=== PATIENT | male | born 1965 | race Caucasian/White ===

== ENCOUNTER 2019-10-14 11:06 | Inpatient (IN) ==
--- NOTE | 2019-09-28 16:49 | PAT Medication Instructions ---
Medication Instructions Date of Service September 28, 2019 Home Medications aspirin [Aspirin Low Dose] 81 mg PO QAM citalopram [Celexa] 20 mg PO QAM lisinopril 40 mg PO QAM metformin 500 mg PO BID omeprazole 40 mg PO QAM pregabalin [Lyrica] 75 mg PO BID rosuvastatin [Crestor] 10 mg PO QPM DO NOT take the morning of surgery metformin 500 mg PO BID lisinopril 40 mg PO QAM Take morning of surgery With a small sip of water, OTHERWISE NOTHING TO EAT OR DRINK AFTER MIDNIGHT: pregabalin [Lyrica] 75 mg PO BID omeprazole 40 mg PO QAM citalopram [Celexa] 20 mg PO QAM aspirin [Aspirin Low Dose] 81 mg PO QAM Take evening before surgery pregabalin [Lyrica] 75 mg PO BID rosuvastatin [Crestor] 10 mg PO QPM metformin 500 mg PO BID Other Notes If you have any questions please call us at [phone] or [phone] or [phone] or [phone]
--- NOTE | 2019-09-29 11:56 | Anesthesiology Consultation ---
Date of Service September 29, 2019 Assessment & Plan (1) Encounter for pre-operative examination: Chart Review Chart Review: Pending: Refer to Additional Notes / Consult section (pending cardio clearance ) and Patient seen in Pre Admission Testing - Check BSG AM DOS Most recent cardio note from 02/06/19 reviewed- it was recommended patient get stress test in event that spine or knee surgery needed. Pt will be set up for cardio clearance. Consults Requested cardiac Teaching & Discussion Pre-Anesthesia Teaching/Discussion Notes: Instructed NPO after midnight before surgery,except medications with 15 cc of water. Medication instructions provided according to the PAT guidelines. History Surgery Operation Date: 10/14/19 10:25 Proposed Procedures p L3-L5 Decompression and Fusion, Spinal Cord Monitoring - Brandon Schroeder DO Height/Weight Height: 5 ft 11 in Weight: 127.2 kg Allergies Allergy/AdvReac Type Severity Reaction Status Date / Time ketorolac [From Toradol] Allergy Unknown Rash Verified 09/21/19 11:53 Medications Home Medications Medication Instructions Recorded Confirmed Last Taken aspirin [Aspirin Low Dose] 81 mg PO QAM 09/21/19 09/21/19 Unknown citalopram [Celexa] 20 mg PO QAM 09/21/19 09/21/19 Unknown lisinopril 40 mg PO QAM 09/21/19 09/21/19 Unknown metformin 500 mg PO BID 09/21/19 09/21/19 Unknown omeprazole 40 mg PO QAM 09/21/19 09/21/19 Unknown pregabalin [Lyrica] 75 mg PO BID 09/21/19 09/21/19 Unknown rosuvastatin [Crestor] 10 mg PO QPM 09/21/19 09/21/19 Unknown Past Medical History Medical History CAD (coronary artery disease) AUGUSTINE to Cx in 2013 Diabetes mellitus Borderline GERD (gastroesophageal reflux disease) Well controlled and stable- with meds History of kidney stones no current issues Hx of myocardial infarction 2013 - s/p one stent Hyperlipidemia Hypertension Numbness and tingling of left leg LEFT LEG Sleep apnea CPAP q HS Exercise / Class Metabolic Activity II 4-5 Yardwork/Stairs/Walk up hill (one filght stairs - no chest pain or SOB ) Past Family History Family History Mother Family history of diabetes mellitus Past Surgical History Surgical History Hx of cardiac cath 2013 [place] X1 STENT Hx of cystoscopy Hx of foot surgery BOTH HEELS Hx of hand surgery RIGHT Hx of knee surgery LEFT Hx of lithotripsy Past Anesthesia History No Hx of Anesthesia Complications and No Family Hx of Anesthesia Complications History of PONV No Hx of PONV and No Hx of Motion Sickness Social History Smoking Status: Current every day smoker tobacco type: cigars Smoking cigarettes per day: 3-4 cigars Do You Dip or Chew Tobacco: No Hx Alcohol Use: No Hx Substance Use: No Review of Systems Patient denies chest pain, shortness of breath, dyspnea on exertion, reflux, cough, wheezing, palpitations. No hx of seizures, stroke. No hx of blood clots or blood transfusions No recent steroid use Physical Exam Vital Signs VITALS BP 146/82 P 81 TEMP 98.0 SP02 95% RESP 16 Constitutional + obese; no acute distress ENMT Mouth: no TMJ clicking Thyromental Distance: > or= 3.5 Finger Breadths (3.5) Mallampati Class: III Missing molars Neck + limited neck extension (mild to moderate ) Respiratory normal respiratory effort; no respiratory distress Auscultation: no wheezes Course breath sounds throughout Cardiovascular Rate/Rhythm: regular rate and regular rhythm Heart Sounds: no murmur Vessels: no carotid bruit Extremities: no edema Musculoskeletal Spine: + pain with cervical ROM Neurologic moves all extremities Psychiatric Orientation: alert Testing Laboratory Results 09/29/19 11:58 09/29/19 11:58 PT 10.6 Seconds (9.0-12.0) 09/29/19 11:58 INR 1.0 (0.9-1.1) 09/29/19 11:58 APTT 29.4 Seconds (21.0-31.0) 09/29/19 11:58 Hemoglobin A1c 5.5 % (4.5-5.6) 09/29/19 11:58 Urine Color Yellow 09/29/19 Unknown Urine Appearance Clear (Clear) 09/29/19 Unknown Urine pH 6.0 (4.5-7.5) 09/29/19 Unknown Ur Specific [place] 1.018 (1.000-1.030) 09/29/19 Unknown Urine Protein Negative (Negative) 09/29/19 Unknown Urine Glucose (UA) Negative (Negative) 09/29/19 Unknown Urine Ketones Negative (Negative) 09/29/19 Unknown Urine Nitrite Negative (Negative) 09/29/19 Unknown Ur Leukocyte Esterase Negative (Negative) 09/29/19 Unknown Blood Type O Positive 09/29/19 11:58 Antibody Screen NEGATIVE 09/29/19 11:58 Electrocardiogram Date: 02/06/19 SR at 90 bpm. Q waves in lead III. Chest X-Ray Date: 09/29/19 Findings: + NAD Nonspecific interstitial thickening is likely chronic. There is mild bibasilar scarring/atelectasis. Echocardiogram Date: 02/13/19 EF: 50-55% LV Function: normal (borderline normal) Other Findings: + LVH (mild/concentric ) Valvular Disease: + no significant valvular disease Cardiac Catheterization Date: 12/27/13 LMwidely patent. LAD30 to 50% stenosis. Proximal circumflex totally occluded. RCA30%. LV cavity with mild lateral hypokinesis. EF 60%. Drug- eluting stent deployed to proximal circumflex occlusionand residual was documented at 0%.
--- NOTE | 2019-09-29 12:39 | XRay Report ---
TWO VIEW CHEST CLINICAL HISTORY: Preoperative examination. FINDINGS: PA and lateral chest radiographs are obtained. No prior studies are available for compariso n at the time of dictation. The cardiomediastinal silhouette is unremarkable. Nonspecific interstitia l thickening is likely chronic. There is mild bibasilar scarring/atelectasis. No airspace consolidati on or pleural effusion is identified. There is no pneumothorax. The bony thorax appears intact. IMPRESSION: No active disease in the chest. ACT 112: Negative or not required by law. Electronically signed by: Piter Larios M.D. 09/29/2019 12:38 PM
[2019-09-29 13:29] LABS: Basophils # (auto) 0.03 K/uL (0-0.2); Basophils % (auto) 0.3 %; Eosinophils % (auto) 4.1 %; Hematocrit (blood only) 43.5 % (42-52); Hemoglobin 14.8 g/dL (14.0-18.0); Immature Granulocytes # (auto) 0.08 K/uL (0.00-0.02); Immature Granulocytes % (auto) 0.8 %; Lymphocytes % (auto) 23.6 %; Mean Corpuscular Hemoglobin 36.4 pg (25-34); Mean Corpuscular Volume 106.9 fL (80-100); Mean Platelet Volume 9.9 fL (7.4-10.4); Monocytes % (auto) 7.2 %; Neutrophils # (auto) 6.23 K/uL (1.4-6.5); Platelet Count 230 K/uL (130-400); RDW Coefficient of Variation 13.3 % (11.5-14.5); RDW Standard Deviation 52.3 fL (36.4-46.3); Red Blood Count 4.07 M/uL (4.7-6.1); White Blood Count 9.74 K/uL (4.8-10.8)
[2019-09-29 13:31] LABS: Appearance Urine Clear (Clear); Bilirubin Urine Negative (Negative); Blood Urine Negative (Negative); Color Urine Yellow; Glucose Urine UA Negative (Negative); Ketones Urine Negative (Negative); Leukocyte Esterase Urine Negative (Negative); Nitrite Urine Negative (Negative); Protein Urine Negative (Negative); Specific Gravity Urine 1.018 (1.000-1.030); Urobilinogen Urine Negative (Negative)
[2019-09-29 13:46] LABS: Partial Thromboplastin Ratio 1.1; Partial Thromboplastin Time 29.4 Seconds (21.0-31.0); Prothrombin Time 10.6 Seconds (9.0-12.0)
[2019-09-29 13:47] LABS: Estimated Average Glucose 111 mg/dl; Hemoglobin A1C 5.5 % (4.5-5.6)
[2019-09-29 14:04] LABS: BUN Creatinine Ratio 18.8 (10-20); Calcium 8.8 mg/dl (8.5-10.1); Creatinine Clr Calc Pharmacy 160.3 ml/min; Est GFR (African American) 123.1; Est GFR (Non-African American) 106.2; Potassium 3.5 mmol/L (3.5-5.1)
[~2019-10-14 11:06] MED LIST: ACETAMINOPHEN 500 MG TAB PO SCH; CEFAZOLIN 3000MG 72.5 ML IV SCH; CeleBREX 200 MG CAP PO SCH; GABAPENTIN 600 MG DOSE PO SCH; LR 15ML/HR IV SCH; SODIUM CHLORIDE 0.9% 250 ML IV PRN
--- NOTE | 2019-10-14 11:32 | History & Physical Bridge Note ---
Date of Service October 14, 2019 History & Physical Bridge Note I have examined the patient, reviewed the History & Physical and in the interval since the performance of the History & Physical I have noted the following changes of clinical significance: no changes noted
--- NOTE | 2019-10-14 11:33 | History & Physical Report ---
Date of Service October 14, 2019 Assessment & Plan (1) Neurogenic claudication due to lumbar spinal stenosis: L4-L5 L5-S1 decompression fusion Present on Admission?: Yes History of Present Illness Chief Complaint: Back and bilateral leg pain Primary Care Provider: Arturo Tello This is a 54-year-old male with back and bilateral leg pain after failing course of nonoperative care and noting significant decline in function is here for decompression fusion. Allergies Allergy/AdvReac Type Severity Reaction Status Date / Time ketorolac [From Toradol] Allergy Unknown Rash Verified 09/21/19 11:53 Home Medications Home Medications Medication Instructions Recorded Confirmed Type aspirin [Aspirin Low Dose] 81 mg PO QAM 09/21/19 09/21/19 History citalopram [Celexa] 20 mg PO QAM 09/21/19 09/21/19 History lisinopril 40 mg PO QAM 09/21/19 09/21/19 History metformin 500 mg PO BID 09/21/19 09/21/19 History omeprazole 40 mg PO QAM 09/21/19 09/21/19 History pregabalin [Lyrica] 75 mg PO BID 09/21/19 09/21/19 History rosuvastatin [Crestor] 10 mg PO QPM 09/21/19 09/21/19 History Past Med/Surg History Medical History CAD (coronary artery disease) AUGUSTINE to Cx in 2013 Diabetes mellitus Borderline GERD (gastroesophageal reflux disease) Well controlled and stable- with meds History of kidney stones no current issues Hx of myocardial infarction 2014 - s/p one stent Hyperlipidemia Hypertension Numbness and tingling of left leg LEFT LEG Sleep apnea CPAP q HS Surgical History Hx of cardiac cath 2013 [place] X1 STENT Hx of cystoscopy Hx of foot surgery BOTH HEELS Hx of hand surgery RIGHT Hx of knee surgery LEFT Hx of lithotripsy Family History Mother Family history of diabetes mellitus Social History Preferred Language: Ivorian Communication Ability: Effective Beliefs That Will Affect Care: None Current Living Situation: Other Feels Safe at Home: Yes Safety Concerns: Feels Safe At This Time Smoking Status: Current every day smoker Tobacco Type: cigars ; Cigarettes Per Day: 3-4 cigars ; Do You Dip or Chew Tobacco: No ; Second Hand Exposure: Yes ; Hx Alcohol Use: No Hx Substance Use: No Physical Exam Physical Exam: Patient is alert and oriented neurologically intact.
[2019-10-14] MEDS ORDERED: BACITRACIN INJ 50,000 UNIT VIAL ONE (12:04)
[2019-10-14] MEDS ORDERED: BUPIVACAINE/EPINEPHRINE 0.5% MPF 1:200,000 10 ML VIAL ONE (12:04)
[2019-10-14] MEDS ORDERED: MIDAZOLAM HCL 1 MG/ML 2ML VIAL ONE (12:07)
[2019-10-14] MEDS ORDERED: fentaNYL citrate 100 MCG/2 ML VIAL ONE (12:07)
[2019-10-14] MEDS ORDERED: LIDOCAINE 2% JELLY 5 ML TUBE ONE (12:10)
[2019-10-14] MEDS ORDERED: ePHEDrine sulfate 50 MG/ML AMP IV PRN (12:21)
[2019-10-14] MEDS ORDERED: ATROPINE SULFATE 0.1 MG/ML 10ML SYR IV PRN (12:21)
[2019-10-14] MEDS ORDERED: ONDANSETRON INJ 2 MG/ML 2 ML VIAL IV PRN ×2 (12:21→17:23)
[2019-10-14] MEDS ORDERED: HYDROmorphone INJ 2 MG/ML SYR/VIAL ONE (12:56)
[2019-10-14] MEDS ORDERED: FLOSEAL HEMOSTATIC MATRIX 10ML TOP ONE (13:28)
[2019-10-14] MEDS ORDERED: PHENYLEPHRINE 100MCG/ML 5ML SYR ONE (14:26)
[2019-10-14] MEDS ORDERED: NEOSTIGMINE METHYLSULFATE 5 MG/5 ML SYR ONE (14:26)
[2019-10-14] MEDS ORDERED: GLYCOPYRROLATE 0.2 MG/ML VIAL ONE (14:26)
[2019-10-14] MEDS ORDERED: PROPOFOL IV EMULSION 10 MG/ML 20 ML VIAL IV ONE (14:26)
[2019-10-14] MEDS ORDERED: ONDANSETRON INJ 2 MG/ML 2 ML VIAL ONE (14:26)
[2019-10-14] MEDS ORDERED: ROCURONIUM BROMIDE 10 MG/ML 5 ML VIAL ONE (14:26)
[2019-10-14] MEDS ORDERED: ALBUMIN HUMAN 5% 12.5 GM/250 ML VIAL IV ONE (14:36)
--- NOTE | 2019-10-14 14:58 | Operative Report ---
Post Operative Report Pre & Post Diagnosis Operation Date: 10/14/19 13:05 Pre-Op Diagnosis: Neurogenic Claudication Due to Lumbar Spinal Stenosis Spondylolisthesis L5-S1 Hernia nucleus pulposus L5-S1 Post-Op Diagnosis: Same I identified the patient and participated in the time-out.: Yes Procedure Operation Date: 10/14/19 13:05 Actual Procedures Medial facetectomies and foraminotomies L3-4, L4-5 and L5-S1. #2 posterior spinal fusion L4-5 L5-S1. #3 placement posterior instrumentation L4-5 L5-S1. #4 interbody fusion L5-S1. #5 placement of Spira titanium cage 13 x 26 mm at L5-S1. #6 placement locally harvested morselized autograft in the posterior gutters. #7 placement infuse collagen sponge, master graft in the posterior gutters and ostial amp interbody space. Surgeon Brandon Schroeder, Logging Tractor Operator Swamp Destiny Laughlin Estimated Blood Loss 500 Findings See Below The patient is 5 foot 11 inches tall weighing over 125 kg with a BMI in excess of 38. This combined with an EBL of greater than 500 cc created significant technical difficulty. He did require our deepest retractors and longus instruments in order to perform his procedure. This added at least 40% increase to the operative time. Specimens None Indications This is a 54-year-old male that presents with marked clinical status with bilat eral leg weakness with any standing and walking. Subsequently elected to go the above-mentioned procedure. Description of Procedure Patient was met with identified informed consent obtained. Patient was then taken to the operative suite underwent an patient placed in a prone position on the Marvin table on top of the Aaron frame. All bony prominences well-padded eyes inspected to ensure no external pressure placed upon them. This point the lumbar spine was prepped and draped in normal sterile fashion. Sharp dissection with the assistance of Bovie cautery was performed down to and exposing the lamina and transverse processes of L4-L5 and sacral ala bilaterally. Obvious bilateral pars defect was noticed at L5-S1. A complete laminectomy of L5 L4 and partial laminectomy of L3 was performed including bilateral medial facetectomies and foraminotomies addressing severe stenosis. L also identified large herniated nucleus pulposus L5-S1 the left. Pedicle screws were then placed in L4-L5 and S1 levels bilaterally with assistance of fluoroscopy and proper sized toi placed. By way of a transforaminal approach and left complete discectomy of L5-S1 was performed endplates curetted to subcortical bleeding bone and a 13 x 26 mm titanium cage filled with osteo-bone graft tapped in position. The rods were then locked into final position bilaterally. The transverse processes of L for L5 and sacral ala burred to subcortical bleeding bone. Infuse collagen sponge mass graft local autograft was placed in the posterior lateral gutters. 15 round RAMONITA drain inserted. The incision was then closed with 1 Vicryl in the fascia 2-0 Vicryl subcutaneously and 4 Monocryl for final skin closure. Steri- Strip sterile dressings placed. Patient wake and taken to PACU stable addition. Please note spinal cord monitoring was utilized that the procedure no changes noted. Lastly Destiny Laughlin was present at the entire procedure involved the pat ient positioning complex portions of the surgery and final skin closure. I attest to the content of the Intraoperative Record and any orders documented therein. Any exceptions are noted below.
--- NOTE | 2019-10-14 15:06 | Fluoroscopy Report ---
FL lumbar spine 2-3V CLINICAL HISTORY: DECOMPRESSION/FUSION/INTERBODY COMPARISON STUDY: None. FLUOROSCOPY TIME: 29 seconds. FLUOROSCOPIC IMAGES: 3 FINDINGS: Fluoroscopy was provided for an L5-S1 discectomy with interbody spacer placement. There is a posterior decompression with bilateral pedicle screws at the L4, L5 and S1 levels with interconnect ing rods. No unexpected radiopaque foreign bodies are noted. Hardware is intact. IMPRESSION: Fluoroscopy provided for L5-S1 discectomy and L4-S1 posterior decompression with bilater al pedicle screw fusion. ACT 112: Negative or not required by law. Electronically signed by: Randell Brooke M.D. 10/14/2019 3:05 PM
[2019-10-14] MEDS: fentaNYL citrate 100 MCG/2 ML VIAL IV PRN ×2 (15:24→15:29)
[2019-10-14] MEDS: HYDROmorphone INJ 2 MG/ML SYR/VIAL IV PRN ×8 (15:31→16:06)
[2019-10-14] MEDS ORDERED: fentaNYL citrate 100 MCG/2 ML VIAL IV PRN (15:55)
[2019-10-14] MEDS ORDERED: MEPERIDINE HCL 25 MG/ML CARP/VIAL ONE ×2 (16:39→16:43)
[2019-10-14] MEDS: MEPERIDINE HCL 25 MG/ML CARP/VIAL IV PRN ×2 (16:42→16:47)
--- NOTE | 2019-10-14 17:10 | Anesthesiology Progress Note ---
Date of Service October 14, 2019 Anesthesia Post Procedure Vital Signs Vital Signs: Temp Pulse Pulse Resp BP BP Pulse Ox 10/14/19 17:00 36.6 C 10/14/19 16:50 83 18 132/79 99 10/14/19 16:40 78 18 125/76 99 10/14/19 16:30 84 18 132/78 99 10/14/19 16:20 36.6 C 84 18 132/80 99 10/14/19 16:10 88 18 120/78 99 10/14/19 16:00 88 18 135/82 97 10/14/19 15:50 86 18 152/68 H 95 10/14/19 15:40 85 18 148/94 H 95 10/14/19 15:30 80 18 152/88 H 94 10/14/19 15:22 36.5 C 84 18 106/85 94 10/14/19 11:41 37 C 90 20 160/92 H 96 Pain Intensity Lower Back: Pain Intensity: 5 Transfer of Care Handoff Completed per policy Notes Mental Status: alert / awake / arousable and participated in evaluation Patient Amnestic to Procedure: Yes Nausea / Vomiting: adequately controlled Pain: adequately controlled Airway Patency, RR, SpO2: stable & adequate BP & HR: stable & adequate Hydration State: stable & adequate Anesthetic Complications: no major complications apparent and Pt Satisfied with anesthetic care
[2019-10-14] MEDS ORDERED: LORazepam 0.5 MG/1 ML VIAL IV PRN (17:23)
[2019-10-14] MEDS ORDERED: FAMOTIDINE 20 MG TAB PO PRN (17:23)
[2019-10-14] MEDS ORDERED: HYDROmorphone INJ 0.5 MG/0.5 ML SYR IV PRN (17:23)
[2019-10-14] MEDS ORDERED: SOD PHOSPHATE/SOD BIPHOSPHATE ENEMA 132 ML BTL PR PRN (17:23)
[2019-10-14] MEDS ORDERED: bisacodyL 10 MG SUPP PR PRN (17:23)
[2019-10-14] MEDS ORDERED: DO NOT ADMINISTER FLU VACCINE PRN (17:23)
[2019-10-14] MEDS ORDERED: ALUMINUM/MAGNESIUM SUSP 30 ML UDC PO PRN (17:23)
[2019-10-14] MEDS ORDERED: METOCLOPRAMIDE HCL INJ 5 MG/ML 2 ML VIAL IV PRN (17:23)
[2019-10-14] MEDS ORDERED: ONDANSETRON 4 MG OD TAB PO PRN (17:23)
[2019-10-14] MEDS ORDERED: ACETAMINOPHEN 1,000 MG/100 ML VIAL IV PRN (17:23)
[2019-10-14] MEDS ORDERED: ACETAMINOPHEN 500 MG TAB PO PRN (17:23)
[2019-10-14] MEDS ORDERED: PROMETHAZINE HCL 12.5 MG in SODIUM CHLORIDE 0.9% 50 ML IV PRN (17:23)
[2019-10-14] MEDS ORDERED: DO NOT ADMINISTER PNEUMOCOCCAL VACCINE PRN (17:23)
[2019-10-14] MEDS ORDERED: NALOXONE HCL 0.4 MG/1 ML VIAL/CARP IV PRN ×2 (17:23→17:34)
[2019-10-14] MEDS ORDERED: HYDROmorphone INJ 1 MG/ML SYRINGE IV PRN (17:23)
[2019-10-14] MEDS ORDERED: HYDROmorphone PCA 30 MG/30 ML IV PRN (17:37)
[2019-10-14] MEDS: SODIUM CHLORIDE 0.9% 1000ML 1,000 ML IV SCH ×2 (18:32→18:33)
[2019-10-14] MEDS ORDERED: GLUCOSE 10 TABS/TUBE PO PRN (19:42)
[2019-10-14] MEDS ORDERED: GLUCAGON FOR INJ 1 MG VIAL SQ PRN (19:42)
[2019-10-14] MEDS ORDERED: CARBOHYDRATES FOR HYPOGLYCEMIA PO PRN (19:42)
[2019-10-14] MEDS ORDERED: DEXTROSE 50% 50 ML SYRINGE IV PRN (19:42)
[2019-10-14] MEDS ORDERED: GLUCOSE 40% GEL 15 GM TUBE PO PRN (19:42)
--- NOTE | 2019-10-14 19:42 | Consultation ---
Date of Consultation October 14, 2019 Assessment & Plan (1) S/P lumbar spinal fusion: S/P LUMBAR FUSION stable overall check H&H DVT prophylaxis and pain management per Ortho Service HISTORY OF CAD no cardiac symptoms ASA resumed DM 2 hold Metformin start Sliding Scale with Novolog monitor BSGs HYPERTENSION stable continue Lisinopril SIDDHARTHA CPAP ordered GERD PPI Thank you for this consultation. We will follow the patient with you during their hospital stay. You can [facility] a [facility] via pager @ [phone]. History of Present Illness 54 year old male with history of CAD, DM, HTN, GERD, SIDDHARTHA, presenting s/p Lumbar Spine Decompression, Fusion surgery. 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 He denies chest pain, dyspnea, palpitations, dizziness. He is able to move his legs as well, no paresthesias or numbness. Attending Physician: Brandon Schroeder DO Allergies Allergy/AdvReac Type Severity Reaction Status Date / Time ketorolac [From Toradol] Allergy Unknown Rash Verified 10/14/19 11:35 Home Medications Home Medications Medication Instructions Recorded Confirmed Type aspirin [Aspirin Low Dose] 81 mg PO QAM 09/21/19 10/14/19 History citalopram [Celexa] 20 mg PO QAM 09/21/19 10/14/19 History lisinopril 40 mg PO QAM 09/21/19 10/14/19 History metformin 500 mg PO BID 09/21/19 10/14/19 History omeprazole 40 mg PO QAM 09/21/19 10/14/19 History pregabalin [Lyrica] 75 mg PO BID 09/21/19 10/14/19 History rosuvastatin [Crestor] 10 mg PO QPM 09/21/19 10/14/19 History Patient History Medical History CAD (coronary artery disease) AUGUSTINE to Cx in 2013 Diabetes mellitus Borderline GERD (gastroesophageal reflux disease) Well controlled and stable- with meds History of kidney stones no current issues Hx of myocardial infarction 2013 - s/p one stent Hyperlipidemia Hypertension Numbness and tingling of left leg LEFT LEG Sleep apnea CPAP q HS Surgical History Hx of cardiac cath 2013 [place] X1 STENT Hx of cystoscopy Hx of foot surgery BOTH HEELS Hx of hand surgery RIGHT Hx of knee surgery LEFT Hx of lithotripsy Family History Mother Family history of diabetes mellitus Social History Preferred Language: Montserratian Communication Ability: Effective Beliefs That Will Affect Care: None Current Living Situation: Other Feels Safe at Home: Yes Safety Concerns: Feels Safe At This Time Smoking Status: Current every day smoker Tobacco Type: cigars ; Cigarettes Per Day: 3-4 cigars ; Do You Dip or Chew Tobacco: No ; Second Hand Exposure: Yes ; Hx Alcohol Use: No Hx Substance Use: No Review of Systems Review of Systems: All systems reviewed & are unremarkable except as noted in HPI & below Physical Exam Physical Exam: General- oriented x 3, not in distress, speaks in sentences with no effort or accessory muscle use Head- atraumatic Eyes- PERRL, EOMI, anicteric ENT- oropharynx clear Neck- supple, no JVD, no adenopathy, no thyromegaly; carotids +2/2, no bruits appreciated Lungs- clear to auscultation bilaterally, no rales/wheezes Heart- normal rate, regular rhythm; no murmur, no gallop, no rub appreciated Abdomen- normal bowel sounds, nondistended, soft, nontender, no masses or hepatosplenomegaly Extremities- no pretibial edema, no calf tenderness; peripheral pulses intact Neuro- alert, oriented x 3; CN 2-12 grossly intact; motor 5/5 bilaterally;sensation 100% on all extremities; no other gross focal neurologic deficits Skin- warm & dry Results & Data ([facility]) Vital Signs (Past 12 Hours) Vital Signs Temp Pulse Pulse Resp BP BP Pulse Ox 10/14/19 18:20 37.1 C 102 H 16 131/77 93 10/14/19 17:00 36.6 C 10/14/19 16:50 83 18 132/79 99 10/14/19 16:40 78 18 125/76 99 10/14/19 16:30 84 18 132/78 99 10/14/19 16:20 36.6 C 84 18 132/80 99 10/14/19 16:10 88 18 120/78 99 10/14/19 16:00 88 18 135/82 97 10/14/19 15:50 86 18 152/68 H 95 10/14/19 15:40 85 18 148/94 H 95 10/14/19 15:30 80 18 152/88 H 94 10/14/19 15:22 36.5 C 84 18 106/85 94 10/14/19 11:41 37 C 90 20 160/92 H 96
[2019-10-14] MEDS: CEFAZOLIN 2000MG 2,000 MG/15 ML SYR IV SCH (20:28)
[2019-10-14] MEDS: ROSUVASTATIN CALCIUM 10 MG TAB PO SCH (20:32)
[2019-10-14] MEDS: DOCUSATE SODIUM/SENNA 50/8.6MG TAB PO SCH (20:32)
[2019-10-14] MEDS: PREGABALIN 75 MG CAP PO SCH (20:39)
[2019-10-14 21:09] LABS: Hematocrit (blood only) 38.1 % (42-52); Hemoglobin 12.9 g/dL (14.0-18.0)
[2019-10-14] MEDS: INSULIN ASPART 100 UNITS/ML 3 ML PEN SC SCH (22:06)
[2019-10-14] MEDS: LORazepam 0.5 MG TAB PO PRN (23:55)
[2019-10-15] MEDS: SODIUM CHLORIDE 0.9% 1000ML 1,000 ML IV SCH ×3 (01:29→17:24)
[2019-10-15] MEDS: CEFAZOLIN 2000MG 2,000 MG/15 ML SYR IV SCH (04:14)
[2019-10-15 05:28] LABS: Basophils # (auto) 0.03 K/uL (0-0.2); Basophils % (auto) 0.3 %; Eosinophils # (auto) 0.38 K/uL (0-0.5); Eosinophils % (auto) 3.2 %; Hematocrit (blood only) 37.2 % (42-52); Hemoglobin 12.4 g/dL (14.0-18.0); Immature Granulocytes # (auto) 0.07 K/uL (0.00-0.02); Immature Granulocytes % (auto) 0.6 %; Lymphocytes # (auto) 3.08 K/uL (1.2-3.4); Lymphocytes % (auto) 26.1 %; Mean Corpuscular Hemoglobin 35.6 pg (25-34); Mean Corpuscular Hgb Conc 33.3 g/dL (32-36); Mean Corpuscular Volume 106.9 fL (80-100); Monocytes # (auto) 1.05 K/uL (0.11-0.59); Monocytes % (auto) 8.9 %; Neutrophils # (auto) 7.19 K/uL (1.4-6.5); Neutrophils % (auto) 60.9 %; Platelet Count 179 K/uL (130-400); RDW Coefficient of Variation 13.3 % (11.5-14.5); RDW Standard Deviation 51.9 fL (36.4-46.3); Red Blood Count 3.48 M/uL (4.7-6.1)
[2019-10-15] MEDS: POLYETHYLENE (MIRALAX) 17 GM PACK PO SCH ×4 (05:38→23:43)
[2019-10-15 05:54] LABS: BUN Creatinine Ratio 10.5 (10-20); Calcium 7.8 mg/dl (8.5-10.1); Creatinine Clr Calc Pharmacy 132.5 ml/min; Est GFR (African American) 113.7; Est GFR (Non-African American) 98.1; Potassium 4.1 mmol/L (3.5-5.1)
[2019-10-15] MEDS ORDERED: Nursing to Pharmacy Communication ONE (07:11)
[2019-10-15] MEDS: lisinopriL 40 MG TAB PO SCH (08:11)
[2019-10-15] MEDS: PANTOprazole 40 MG TAB PO SCH (08:11)
[2019-10-15] MEDS: PREGABALIN 75 MG CAP PO SCH ×2 (08:11→20:56)
[2019-10-15] MEDS: ASPIRIN 81 MG ECTAB PO SCH (08:12)
[2019-10-15] MEDS: CITALOPRAM 20 MG TAB PO SCH (08:12)
[2019-10-15] MEDS: INSULIN ASPART 100 UNITS/ML 3 ML PEN SC SCH ×4 (08:14→21:01)
[2019-10-15] MEDS ORDERED: ZOLPIDEM TARTRATE 10 MG TAB PO PRN (08:58)
--- NOTE | 2019-10-15 08:59 | Orthopedic Progress Note ---
Date of Service October 15, 2019 Assessment & Plan (1) Neurogenic claudication due to lumbar spinal stenosis: At this time we will maintain the VETERINARY TECHNICIAN INSTRUCTOR today. Encourage ambulation. Discontinue his [place]. He does have a significant history of narcotic abuse for the past 20 years even though he is not been on medicine recently. He subsequently has developed significant tolerance. He understands. We will continue to encourage activity. Present on Admission?: Yes Admission and Anticipated Discharge Date Admission Date: October 14, 2019 Subjective Back pain quite limiting. Leg symptoms improved. Physical Exam Physical Exam: On exam he has good strength testing appears comfortable. Results & Data ([facility]) Vital Signs (Past 12 Hours) Vital Signs Temp Pulse Pulse Pulse Resp BP Pulse Ox 10/15/19 07:10 36.5 C 65 18 109/65 95 10/15/19 03:53 36.7 C 87 20 124/78 95 10/14/19 23:41 95 H 20 95 10/14/19 22:26 36.5 C 85 16 120/72 93 10/14/19 21:15 36.9 C 87 16 129/74 92
--- NOTE | 2019-10-15 09:17 | Hospitalist Progress Note ---
Date of Service October 15, 2019 Assessment & Plan (1) S/P lumbar spinal fusion: S/P LUMBAR FUSION on (10/13) POD#1 stable overall monitor H&H For pain pt is currently on LEADED GLASS INSTALLER DVT prophylaxis and pain management per Ortho Service Acute blood loss anemia/ post op - expected - current Hgb 12.4 - cont. to monitor - no s/s reported HISTORY OF CAD no cardiac symptoms ASA resumed DM 2 hold Metformin cont. Sliding Scale with Novolog monitor BSGs HYPERTENSION stable continue Lisinopril SIDDHARTHA cont. CPAP qhs GERD PPI Thank you for this consultation. We will follow the patient with you during their hospital stay. You can reach a member of the [facility] Hospitalist Team 11/02 via pager @ [phone]. Admission and Anticipated Discharge Date Admission Date: October 14, 2019 Subjective Pt is lying in bed, in NAD, on LEADED GLASS INSTALLER for back pain, on NC 2L/min. Pt does not use oxygen at home. Pt continues to complain of back pain, able to move extremities spontaneously. Denies fever, chills, chest pain, shortness of breath, abd. pain, nausea or vomiting. No BM yet since surgery. Review of Systems Review of Systems: All systems reviewed & are unremarkable except as noted in HPI & below Constitutional: no fever and no chills Respiratory: no cough and no dyspnea (but on suppl. O2) Cardiovascular: no chest pain and no palpitations Gastrointestinal: no abdominal pain, no nausea and no vomiting Physical Exam Physical Exam: General- alert and oriented x 3, obese male in no acute distress, on LEADED GLASS INSTALLER, on 2L/min of NC suppl. O2 Head- NC/AT Eyes- PERRL, EOMI, anicteric ENT- oropharynx clear Neck- supple, no JVD, no adenopathy Lungs- clear to auscultation bilaterally, no rales/wheezes Heart- normal rate, regular rhythm; no murmur, no gallop, no rub appreciated Abdomen- normal bowel sounds, nondistended, soft,obese, nontender Back-clean dressings applied over surg. site Extremities- no LE edema b/l, no calf tenderness; peripheral pulses intact Neuro- alert and oriented x 3; no facial asymmetry, speech fluent, moves extremities spontaneously Skin- warm, dry Results & Data Results & Data ([facility]) Vital Signs (Past 12 Hours) Vital Signs Temp Pulse Pulse Pulse Resp BP Pulse Ox 10/15/19 07:10 36.5 C 65 18 109/65 95 10/15/19 03:53 36.7 C 87 20 124/78 95 10/14/19 23:41 95 H 20 95 10/14/19 22:26 36.5 C 85 16 120/72 93 10/14/19 21:15 36.9 C 87 16 129/74 92 Laboratory Results 10/15/19 10/15/19 10/15/19 Range/Units 07:57 05:20 05:20 WBC 11.80 H (4.8-10.8) K/uL RBC 3.48 L (4.7-6.1) M/uL Hgb 12.4 L (14.0-18.0) g/dL Hct 37.2 L (42-52) % MCV 106.9 H (80-100) fL MCH 35.6 H (25-34) pg MCHC 33.3 (32-36) g/dL RDW Std Deviation 51.9 H (36.4-46.3) fL RDW Coeff of Raymon 13.3 (11.5-14.5) % Plt Count 179 (130-400) K/uL MPV 9.0 (7.4-10.4) fL Immature Gran % (Auto) 0.6 % Neut % (Auto) 60.9 % Lymph % (Auto) 26.1 % Yates % (Auto) 8.9 % Eos % (Auto) 3.2 % Baso % (Auto) 0.3 % Immature Gran # (Auto) 0.07 H (0.00-0.02) K/uL Neut # (Auto) 7.19 H (1.4-6.5) K/uL Lymph # (Auto) 3.08 (1.2-3.4) K/uL Yates # (Auto) 1.05 H (0.11-0.59) K/uL Eos # (Auto) 0.38 (0-0.5) K/uL Baso # (Auto) 0.03 (0-0.2) K/uL Sodium 136 (136-145) mmol/L Potassium 4.1 (3.5-5.1) mmol/L Chloride 105 (98-107) mmol/L Carbon Dioxide 29 (21-32) mmol/L Anion Gap 2.0 L (3-11) BUN 9 (7-18) mg/dl Creatinine 0.85 (0.6-1.4) mg/dl Est Cr Clr Drug Dosing 132.5 ml/min Est GFR ( Amer) 113.7 Est GFR (Non-Af Amer) 98.1 BUN/Creatinine Ratio 10.5 (10-20) Glucose 132 H (70-99) mg/dl POC Glucose 127 H (70-99) mg/dl Calcium 7.8 L (8.5-10.1) mg/dl Blood Type Antibody Screen Crossmatch 10/14/19 10/14/19 10/14/19 Range/Units 20:58 20:51 11:49 WBC (4.8-10.8) K/uL RBC (4.7-6.1) M/uL Hgb 12.9 L (14.0-18.0) g/dL Hct 38.1 L (42-52) % MCV (80-100) fL MCH (25-34) pg MCHC (32-36) g/dL RDW Std Deviation (36.4-46.3) fL RDW Coeff of Raymon (11.5-14.5) % Plt Count (130-400) K/uL MPV (7.4-10.4) fL Immature Gran % (Auto) % Neut % (Auto) % Lymph % (Auto) % Yates % (Auto) % Eos % (Auto) % Baso % (Auto) % Immature Gran # (Auto) (0.00-0.02) K/uL Neut # (Auto) (1.4-6.5) K/uL Lymph # (Auto) (1.2-3.4) K/uL Yates # (Auto) (0.11-0.59) K/uL Eos # (Auto) (0-0.5) K/uL Baso # (Auto) (0-0.2) K/uL Sodium (136-145) mmol/L Potassium (3.5-5.1) mmol/L Chloride (98-107) mmol/L Carbon Dioxide (21-32) mmol/L Anion Gap (3-11) BUN (7-18) mg/dl Creatinine (0.6-1.4) mg/dl Est Cr Clr Drug Dosing ml/min Est GFR ( Amer) Est GFR (Non-Af Amer) BUN/Creatinine Ratio (10-20) Glucose (70-99) mg/dl POC Glucose 109 H 111 H (70-99) mg/dl Calcium (8.5-10.1) mg/dl Blood Type Antibody Screen Crossmatch 10/14/19 Range/Units 11:34 WBC (4.8-10.8) K/uL RBC (4.7-6.1) M/uL Hgb (14.0-18.0) g/dL Hct (42-52) % MCV (80-100) fL MCH (25-34) pg MCHC (32-36) g/dL RDW Std Deviation (36.4-46.3) fL RDW Coeff of Raymon (11.5-14.5) % Plt Count (130-400) K/uL MPV (7.4-10.4) fL Immature Gran % (Auto) % Neut % (Auto) % Lymph % (Auto) % Yates % (Auto) % Eos % (Auto) % Baso % (Auto) % Immature Gran # (Auto) (0.00-0.02) K/uL Neut # (Auto) (1.4-6.5) K/uL Lymph # (Auto) (1.2-3.4) K/uL Yates # (Auto) (0.11-0.59) K/uL Eos # (Auto) (0-0.5) K/uL Baso # (Auto) (0-0.2) K/uL Sodium (136-145) mmol/L Potassium (3.5-5.1) mmol/L Chloride (98-107) mmol/L Carbon Dioxide (21-32) mmol/L Anion Gap (3-11) BUN (7-18) mg/dl Creatinine (0.6-1.4) mg/dl Est Cr Clr Drug Dosing ml/min Est GFR ( Amer) Est GFR (Non-Af Amer) BUN/Creatinine Ratio (10-20) Glucose (70-99) mg/dl POC Glucose (70-99) mg/dl Calcium (8.5-10.1) mg/dl Blood Type O Positive Antibody Screen NEGATIVE Crossmatch See Detail Medications Administered Current Inpatient Medications Acetaminophen (Tylenol) 1,000 mg PO Q8H PRN PRN Reason: MILD Pain Scale 1,2,3 & Pre PT Stop: 11/13/19 17:22 Al Hydrox/Mg Hydrox/Simethicone (Maalox) 30 ml PO Q6H PRN PRN Reason: Dyspepsia Stop: 11/13/19 17:22 Aspirin (Ecotrin Ectab) 81 mg PO QAM [facility] Stop: 11/14/19 08:59 Last Admin: 10/15/19 08:12 Dose: 81 mg Documented by: Bisacodyl (Dulcolax) 10 mg HI DAILY PRN PRN Reason: Constipation Stop: 11/13/19 17:22 Citalopram Hydrobromide (Celexa) 20 mg PO [facility] Stop: 11/14/19 08:59 Last Admin: 10/15/19 08:12 Dose: 20 mg Documented by: Dextrose (Dextrose 50%) 25 - 50 ml IV UD PRN; Protocol PRN Reason: Hypoglycemia Protocol Stop: 11/13/19 19:41 Diphenhydramine HCl (Benadryl Capsule) 25 mg PO Q6H PRN PRN Reason: Allergic Rhinitis/Insomnia Stop: 11/13/19 17:22 Famotidine (Pepcid) 20 mg PO Q12H PRN PRN Reason: Dyspepsia Stop: 11/13/19 17:22 Glucagon (Glucagen) 1 mg SQ UD PRN; Protocol PRN Reason: Hypoglycemia Protocol Stop: 11/13/19 19:41 Glucose (Dex4 Glucose) 4 - 8 tabs PO UD PRN; Protocol PRN Reason: Hypoglycemia Protocol Stop: 11/13/19 19:41 Glucose (Glucose 40%) 15 - 30 gm PO UD PRN; Protocol PRN Reason: Hypoglycemia Protocol Stop: 11/13/19 19:41 Hydromorphone HCl () 30 mg IV PRN PRN; Protocol PRN Reason: LEADED GLASS INSTALLER Pain Titration Stop: 10/28/19 17:36 Last Admin: 10/14/19 18:41 Dose: 30 mg Documented by: Hydroxyzine HCl (Vistaril) 25 mg PO Q8H PRN PRN Reason: Anxiety Stop: 11/13/19 17:22 Sodium Chloride (Nss) 250 mls @ 15 mls/hr IV .[id number] PRN PRN Reason: For Transfusion Stop: 11/13/19 04:59 Acetaminophen (Ofirmev) 1,000 mg in 100 mls @ 400 mls/hr IV Q8H PRN PRN Reason: MILD Pain Rating 1,2,3 Stop: 10/15/19 17:22 Last Infusion: 10/15/19 04:49 Dose: Infused Documented by: Promethazine HCl 12.5 mg/ (Sodium Chloride) 50.5 mls @ 204 mls/hr IV Q6H PRN PRN Reason: Nausea &/or Vomiting Stop: 11/13/19 17:22 Lorazepam (Ativan) 0.5 mg in 1 mls @ 0.5 mls/min IV Q8H PRN PRN Reason: Sedation/Anxiety Stop: 11/13/19 17:22 Sodium Chloride (Nss 1000ml) 1,000 mls @ 15 mls/hr IV .Q24H [facility] Stop: 10/28/19 17:35 Last Admin: 10/14/19 18:33 Dose: Not Given Documented by: Influenza Virus Vaccine Quadrival (Flu Vaccine, Do Not Administer) 1 ea N/A PRN PRN PRN Reason: Notification Stop: 11/13/19 17:22 Insulin Aspart (Novolog Flexpen) 0 units SC ACHS [facility] Stop: 11/13/19 20:59 Last Admin: 10/15/19 08:14 Dose: 3 units Documented by: Lisinopril (Zestril) 40 mg PO QAM [facility] Stop: 11/14/19 08:59 Last Admin: 10/15/19 08:11 Dose: 40 mg Documented by: Lorazepam (Ativan) 0.5 mg PO Q8H PRN PRN Reason: Sedation/Anxiety Stop: 11/13/19 17:22 Last Admin: 10/14/19 23:55 Dose: 0.5 mg Documented by: Magnesium Hydroxide (Milk Of Magnesia) 30 ml PO DAILY PRN PRN Reason: Constipation Stop: 11/13/19 17:22 Metoclopramide HCl (Reglan) 10 mg IV Q6H PRN PRN Reason: Nausea &/or Vomiting Stop: 11/13/19 17:22 Miscellaneous (Carbohydrates For Hypoglycemia) 15 - 30 gm PO UD PRN PRN Reason: Hypoglycemia Protocol Stop: 11/13/19 19:41 Naloxone HCl (Narcan) 0.1 mg IV Q5M PRN; Protocol PRN Reason: Oversedation/Resp Depression Stop: 11/13/19 17:22 Naloxone HCl (Narcan) 0.1 mg IV Q5M PRN; Protocol PRN Reason: Oversedation/Resp Depression Stop: 10/28/19 17:33 Ondansetron HCl (Zofran) 4 mg IV Q6H PRN PRN Reason: Nausea &/or Vomiting Stop: 11/13/19 17:22 Ondansetron HCl (Zofran Odt) 4 mg PO Q6H PRN PRN Reason: Nausea Stop: 11/13/19 17:22 Oxycodone HCl (Roxicodone Immediate Rel) 5 - 10 mg PO Q4H PRN PRN Reason: Moderate-Severe Pain & Pre PT Stop: 10/28/19 17:22 Pantoprazole Sodium (Protonix) 40 mg PO QAM [facility] Stop: 11/14/19 08:59 Last Admin: 10/15/19 08:11 Dose: 40 mg Documented by: Pneumococcal Polyvalent Vaccine (Pneumococcal Vacc, Do Not Administer) 1 ea N/A PRN PRN PRN Reason: Notification Stop: 11/13/19 17:22 Polyethylene Glycol (Miralax Powder Packet) 17 gm PO Q6 [facility] Stop: 11/14/19 05:59 Last Admin: 10/15/19 05:38 Dose: 17 gm Documented by: Pregabalin (Lyrica) 75 mg PO BID [facility] Stop: 11/13/19 20:59 Last Admin: 10/15/19 08:11 Dose: 75 mg Documented by: Rosuvastatin Calcium (Crestor) 10 mg PO QPM [facility] Stop: 11/13/19 20:59 Last Admin: 10/14/19 20:32 Dose: 10 mg Documented by: Senna/Docusate Sodium (Senokot S) 2 tab PO HS [facility] Stop: 11/13/19 20:59 Last Admin: 10/14/19 20:32 Dose: 2 tab Documented by: Sodium Biphosphate/Sodium Phosphate (Fleet Enema) 132 ml HI ONE PRN PRN Reason: Constipation Stop: 11/13/19 17:22 Tramadol HCl (Ultram) 50 - 100 mg PO Q4H PRN PRN Reason: Moderate-Severe Pain & Pre PT Stop: 11/13/19 17:22 Zolpidem Tartrate (Ambien) 10 mg PO HS PRN PRN Reason: Sleep Stop: 11/14/19 08:57
[2019-10-15] MEDS: MAGNESIUM HYDROXIDE SUSP 30 ML UDC PO PRN (20:56)
[2019-10-15] MEDS: ROSUVASTATIN CALCIUM 10 MG TAB PO SCH (20:57)
[2019-10-15] MEDS: DOCUSATE SODIUM/SENNA 50/8.6MG TAB PO SCH (20:57)
[2019-10-16 05:38] LABS: Hematocrit (blood only) 36.3 % (42-52); Hemoglobin 11.9 g/dL (14.0-18.0); Mean Corpuscular Hemoglobin 35.8 pg (25-34); Mean Corpuscular Hgb Conc 32.8 g/dL (32-36); Mean Corpuscular Volume 109.3 fL (80-100); Mean Platelet Volume 9.3 fL (7.4-10.4); Platelet Count 182 K/uL (130-400); RDW Coefficient of Variation 13.1 % (11.5-14.5); RDW Standard Deviation 52.3 fL (36.4-46.3); Red Blood Count 3.32 M/uL (4.7-6.1); White Blood Count 13.66 K/uL (4.8-10.8)
[2019-10-16 06:14] LABS: Calcium 8.3 mg/dl (8.5-10.1); Creatinine Clr Calc Pharmacy 154.3 ml/min; Est GFR (Non-African American) 104.4; Magnesium 2.5 mg/dl (1.8-2.4); Potassium 4.1 mmol/L (3.5-5.1)
[2019-10-16] MEDS: POLYETHYLENE (MIRALAX) 17 GM PACK PO SCH ×3 (06:32→17:26)
[2019-10-16] MEDS ORDERED: DC PCA 1 EA DEVI ONE (07:43)
[2019-10-16] MEDS ORDERED: HYDROmorphone INJ 0.5 MG/0.5 ML SYR IV PRN (07:45)
--- NOTE | 2019-10-16 07:46 | Orthopedic Progress Note ---
Date of Service October 16, 2019 Assessment & Plan (1) Neurogenic claudication due to lumbar spinal stenosis: This time continue physical therapy monitor his RAMONITA output discontinue his [employer] today anticipate discharge home tomorrow. Present on Admission?: Yes Admission and Anticipated Discharge Date Admission Date: October 14, 2019 Subjective Patient complaining mostly of back pain. No leg pain. Physical Exam Physical Exam: Patient is standing and ambulating with a narrow steady gait. Good strength testing. Results & Data ([facility]) Vital Signs (Past 12 Hours) Vital Signs Temp Pulse Pulse Resp BP Pulse Ox 10/16/19 03:20 36.9 C 98 H 18 133/68 96 10/15/19 23:18 98 H 18 97 10/15/19 23:03 37.0 C 98 H 16 118/70 97
[2019-10-16] MEDS: OXYCODONE HCL IR 5 MG TAB (IMMEDIATE RELEASE) PO PRN ×4 (07:53→20:09)
[2019-10-16] MEDS: CITALOPRAM 20 MG TAB PO SCH (08:52)
[2019-10-16] MEDS: lisinopriL 40 MG TAB PO SCH (08:52)
[2019-10-16] MEDS: PANTOprazole 40 MG TAB PO SCH (08:52)
[2019-10-16] MEDS: INSULIN ASPART 100 UNITS/ML 3 ML PEN SC SCH ×4 (08:54→21:04)
[2019-10-16] MEDS: PREGABALIN 75 MG CAP PO SCH ×2 (08:57→20:14)
[2019-10-16] MEDS: ASPIRIN 81 MG ECTAB PO SCH (09:53)
[2019-10-16] MEDS: MAGNESIUM HYDROXIDE SUSP 30 ML UDC PO PRN (09:54)
--- NOTE | 2019-10-16 17:54 | Hospitalist Progress Note ---
Date of Service October 16, 2019 Assessment & Plan (1) S/P lumbar spinal fusion: S/P LUMBAR FUSION on (10/13) POD#2 stable overall monitor H&H Yesterday pt was on RN DIALYSIS for pain control, d/c'ed this AM DVT prophylaxis and pain management per Ortho Service Acute blood loss anemia/ post op - expected - preop Hgb 14.8 on 09/28 - current Hgb 12.4 ->11.9 - cont. to monitor - no s/s reported Constipation - post surg., and in setting of opioids - used several stool softeners,and milk of magnesia today, discussed suppository, pt agreeable HISTORY OF CAD no cardiac symptoms ASA resumed DM 2 hold Metformin cont. Sliding Scale with Novolog monitor BSGs HYPERTENSION stable continue Lisinopril SIDDHARTHA cont. CPAP qhs GERD PPI Thank you for this consultation. We will follow the patient with you during their hospital stay. You can reach a member of the [facility] Hospitalist Team 11/02 via pager @ [phone]. Admission and Anticipated Discharge Date Admission Date: October 14, 2019 Subjective Pt is lying in bed, complains of back pain and constipation. Able to ambulate to bathroom and in the hallway with walker. Pt is now off RN DIALYSIS and off suppl. O2, satting 96% on RA on my exam. Denies any fever chills, chest pain, shortness of breath, has some abdominal discomfort, says due to constipation, no nausea or vomiting. Patient walked to bathroom several times today, hopeful for bowel movement, receiving several stool softeners. Discussed suppository, patient is agreeable. Review of Systems Review of Systems: All systems reviewed & are unremarkable except as noted in HPI & below Constitutional: no fever and no chills Respiratory: no cough and no dyspnea Cardiovascular: no chest pain, no palpitations and no edema Gastrointestinal: + abdominal pain (pt reports some abd. discomfort, says d/t constipation) and + constipation; no nausea and no vomiting Physical Exam Physical Exam: General- alert and oriented x 3, obese male in no acute distress, and breathing comfortably on room air, O2 satts 96% Head- NC/AT Eyes- PERRL, EOMI, anicteric ENT- oropharynx clear Neck- supple, no JVD, no adenopathy Lungs- clear to auscultation bilaterally, no rales/wheezes Heart- normal rate, regular rhythm; no murmur, no gallop, no rub appreciated Abdomen- normal bowel sounds, nondistended, soft,obese, nontender Back-clean dressings applied over surg. site, RAMONITA drain placed, drains serosang. fluid Extremities- no LE edema b/l, no calf tenderness; peripheral pulses intact Neuro- alert and oriented x 3; no facial asymmetry, speech fluent, moves extremities spontaneously Skin- warm, dry Results & Data Results & Data ([facility]) Vital Signs (Past 12 Hours) Vital Signs Temp Pulse Resp BP Pulse Ox 10/16/19 16:03 37.1 C 89 18 115/66 93 10/16/19 15:04 96 10/16/19 07:46 37.2 C 96 H 18 120/73 93 Laboratory Results 10/16/19 10/16/19 10/16/19 Range/Units 17:03 12:02 07:57 WBC (4.8-10.8) K/uL RBC (4.7-6.1) M/uL Hgb (14.0-18.0) g/dL Hct (42-52) % MCV (80-100) fL MCH (25-34) pg MCHC (32-36) g/dL RDW Std Deviation (36.4-46.3) fL RDW Coeff of Raymon (11.5-14.5) % Plt Count (130-400) K/uL MPV (7.4-10.4) fL Sodium (136-145) mmol/L Potassium (3.5-5.1) mmol/L Chloride (98-107) mmol/L Carbon Dioxide (21-32) mmol/L Anion Gap (3-11) BUN (7-18) mg/dl Creatinine (0.6-1.4) mg/dl Est Cr Clr Drug Dosing ml/min Est GFR ( Amer) Est GFR (Non-Af Amer) BUN/Creatinine Ratio (10-20) Glucose (70-99) mg/dl POC Glucose 149 H 133 H 132 H (70-99) mg/dl Calcium (8.5-10.1) mg/dl Magnesium (1.8-2.4) mg/dl Crossmatch 10/16/19 10/16/1920 Range/Units 05:06 05:06 20:48 WBC 13.66 H (4.8-10.8) K/uL RBC 3.32 L (4.7-6.1) M/uL Hgb 11.9 L (14.0-18.0) g/dL Hct 36.3 L (42-52) % MCV 109.3 H (80-100) fL MCH 35.8 H (25-34) pg MCHC 32.8 (32-36) g/dL RDW Std Deviation 52.3 H (36.4-46.3) fL RDW Coeff of Raymon 13.1 (11.5-14.5) % Plt Count 182 (130-400) K/uL MPV 9.3 (7.4-10.4) fL Sodium 134 L (136-145) mmol/L Potassium 4.1 (3.5-5.1) mmol/L Chloride 103 (98-107) mmol/L Carbon Dioxide 30 (21-32) mmol/L Anion Gap 1.0 L (3-11) BUN 11 (7-18) mg/dl Creatinine 0.73 (0.6-1.4) mg/dl Est Cr Clr Drug Dosing 154.3 ml/min Est GFR ( Amer) 121.0 Est GFR (Non-Af Amer) 104.4 BUN/Creatinine Ratio 15.0 (10-20) Glucose 124 H (70-99) mg/dl POC Glucose 105 H (70-99) mg/dl Calcium 8.3 L (8.5-10.1) mg/dl Magnesium 2.5 H (1.8-2.4) mg/dl Crossmatch 10/14/19 Range/Units 11:34 WBC (4.8-10.8) K/uL RBC (4.7-6.1) M/uL Hgb (14.0-18.0) g/dL Hct (42-52) % MCV (80-100) fL MCH (25-34) pg MCHC (32-36) g/dL RDW Std Deviation (36.4-46.3) fL RDW Coeff of Raymon (11.5-14.5) % Plt Count (130-400) K/uL MPV (7.4-10.4) fL Sodium (136-145) mmol/L Potassium (3.5-5.1) mmol/L Chloride (98-107) mmol/L Carbon Dioxide (21-32) mmol/L Anion Gap (3-11) BUN (7-18) mg/dl Creatinine (0.6-1.4) mg/dl Est Cr Clr Drug Dosing ml/min Est GFR ( Amer) Est GFR (Non-Af Amer) BUN/Creatinine Ratio (10-20) Glucose (70-99) mg/dl POC Glucose (70-99) mg/dl Calcium (8.5-10.1) mg/dl Magnesium (1.8-2.4) mg/dl Crossmatch See Detail Medications Administered Current Inpatient Medications Acetaminophen (Tylenol) 1,000 mg PO Q8H PRN PRN Reason: MILD Pain Scale 1,2,3 & Pre PT Stop: 11/13/19 17:22 Al Hydrox/Mg Hydrox/Simethicone (Maalox) 30 ml PO Q6H PRN PRN Reason: Dyspepsia Stop: 11/13/19 17:22 Aspirin (Ecotrin Ectab) 81 mg PO [facility] Stop: 11/14/19 08:59 Last Admin: 10/16/19 09:53 Dose: 81 mg Documented by: Bisacodyl (Dulcolax) 10 mg [place] DAILY PRN PRN Reason: Constipation Stop: 11/13/19 17:22 Last Admin: 10/16/19 16:07 Dose: 10 mg Documented by: Citalopram Hydrobromide (Celexa) 20 mg PO [facility] Stop: 11/14/19 08:59 Last Admin: 10/16/19 08:52 Dose: 20 mg Documented by: Dextrose (Dextrose 50%) 25 - 50 ml IV UD PRN; Protocol PRN Reason: Hypoglycemia Protocol Stop: 11/13/19 19:41 Diphenhydramine HCl (Benadryl Capsule) 25 mg PO Q6H PRN PRN Reason: Allergic Rhinitis/Insomnia Stop: 11/13/19 17:22 Famotidine (Pepcid) 20 mg PO Q12H PRN PRN Reason: Dyspepsia Stop: 11/13/19 17:22 Glucagon (Glucagen) 1 mg SQ UD PRN; Protocol PRN Reason: Hypoglycemia Protocol Stop: 11/13/19 19:41 Glucose (Dex4 Glucose) 4 - 8 tabs PO UD PRN; Protocol PRN Reason: Hypoglycemia Protocol Stop: 11/13/19 19:41 Glucose (Glucose 40%) 15 - 30 gm PO UD PRN; Protocol PRN Reason: Hypoglycemia Protocol Stop: 11/13/19 19:41 Hydromorphone HCl (Dilaudid) 0.5 mg IV Q4 PRN PRN Reason: Pain Stop: 10/30/19 07:44 Last Admin: 10/16/19 17:22 Dose: 0.5 mg Documented by: Hydroxyzine HCl (Vistaril) 25 mg PO Q8H PRN PRN Reason: Anxiety Stop: 11/13/19 17:22 Sodium Chloride (Nss) 250 mls @ 15 mls/hr IV .[id number] PRN PRN Reason: For Transfusion Stop: 11/13/19 04:59 Promethazine HCl 12.5 mg/ (Sodium Chloride) 50.5 mls @ 204 mls/hr IV Q6H PRN PRN Reason: Nausea &/or Vomiting Stop: 11/13/19 17:22 Lorazepam (Ativan) 0.5 mg in 1 mls @ 0.5 mls/min IV Q8H PRN PRN Reason: Sedation/Anxiety Stop: 11/13/19 17:22 Influenza Virus Vaccine Quadrival (Flu Vaccine, Do Not Administer) 1 ea N/A PRN PRN PRN Reason: Notification Stop: 11/13/19 17:22 Insulin Aspart (Novolog Flexpen) 0 units SC ACHS [facility] Stop: 11/13/19 20:59 Last Admin: 10/16/19 12:47 Dose: Not Given Documented by: Lisinopril (Zestril) 40 mg PO QAM [facility] Stop: 11/14/19 08:59 Last Admin: 10/16/19 08:52 Dose: 40 mg Documented by: Lorazepam (Ativan) 0.5 mg PO Q8H PRN PRN Reason: Sedation/Anxiety Stop: 11/13/19 17:22 Last Admin: 10/14/19 23:55 Dose: 0.5 mg Documented by: Magnesium Hydroxide (Milk Of Magnesia) 30 ml PO DAILY PRN PRN Reason: Constipation Stop: 11/13/19 17:22 Last Admin: 10/16/19 09:54 Dose: 30 ml Documented by: Metoclopramide HCl (Reglan) 10 mg IV Q6H PRN PRN Reason: Nausea &/or Vomiting Stop: 11/13/19 17:22 Miscellaneous (Carbohydrates For Hypoglycemia) 15 - 30 gm PO UD PRN PRN Reason: Hypoglycemia Protocol Stop: 11/13/19 19:41 Naloxone HCl (Narcan) 0.1 mg IV Q5M PRN; Protocol PRN Reason: Oversedation/Resp Depression Stop: 11/13/19 17:22 Ondansetron HCl (Zofran) 4 mg IV Q6H PRN PRN Reason: Nausea &/or Vomiting Stop: 11/13/19 17:22 Ondansetron HCl (Zofran Odt) 4 mg PO Q6H PRN PRN Reason: Nausea Stop: 11/13/19 17:22 Last Admin: 10/15/19 15:59 Dose: 4 mg Documented by: Oxycodone HCl (Roxicodone Immediate Rel) 5 - 10 mg PO Q4H PRN PRN Reason: Moderate-Severe Pain & Pre PT Stop: 10/28/19 17:22 Last Admin: 10/16/19 16:04 Dose: 10 mg Documented by: Pantoprazole Sodium (Protonix) 40 mg PO QAM [facility] Stop: 11/14/19 08:59 Last Admin: 10/16/19 08:52 Dose: 40 mg Documented by: Pneumococcal Polyvalent Vaccine (Pneumococcal Vacc, Do Not Administer) 1 ea N/A PRN PRN PRN Reason: Notification Stop: 11/13/19 17:22 Polyethylene Glycol (Miralax Powder Packet) 17 gm PO Q6 [facility] Stop: 11/14/19 05:59 Last Admin: 10/16/19 17:26 Dose: 17 gm Documented by: Pregabalin (Lyrica) 75 mg PO BID [facility] Stop: 11/13/19 20:59 Last Admin: 10/16/19 08:57 Dose: 75 mg Documented by: Rosuvastatin Calcium (Crestor) 10 mg PO QPM [facility] Stop: 11/13/19 20:59 Last Admin: 10/15/19 20:57 Dose: 10 mg Documented by: Senna/Docusate Sodium (Senokot S) 2 tab PO HS [facility] Stop: 11/13/19 20:59 Last Admin: 10/15/19 20:57 Dose: 2 tab Documented by: Sodium Biphosphate/Sodium Phosphate (Fleet Enema) 132 ml [place] ONE PRN PRN Reason: Constipation Stop: 11/13/19 17:22 Tramadol HCl (Ultram) 50 - 100 mg PO Q4H PRN PRN Reason: Moderate-Severe Pain & Pre PT Stop: 11/13/19 17:22 Zolpidem Tartrate (Ambien) 10 mg PO HS PRN PRN Reason: Sleep Stop: 11/14/19 08:57
[2019-10-16] MEDS: LORazepam 0.5 MG TAB PO PRN (19:34)
[2019-10-16] MEDS: ROSUVASTATIN CALCIUM 10 MG TAB PO SCH (20:15)
[2019-10-16] MEDS: DOCUSATE SODIUM/SENNA 50/8.6MG TAB PO SCH (20:15)
[2019-10-16] MEDS: TRAMADOL HCL 50 MG TABLET PO PRN (21:47)
[2019-10-17] MEDS: POLYETHYLENE (MIRALAX) 17 GM PACK PO SCH ×3 (00:17→12:35)
[2019-10-17] MEDS: OXYCODONE HCL IR 5 MG TAB (IMMEDIATE RELEASE) PO PRN ×4 (00:17→12:56)
[2019-10-17 06:19] LABS: Hematocrit (blood only) 35.7 % (42-52); Hemoglobin 11.9 g/dL (14.0-18.0); Mean Corpuscular Hgb Conc 33.3 g/dL (32-36); Mean Corpuscular Volume 107.9 fL (80-100); Mean Platelet Volume 9.3 fL (7.4-10.4); Platelet Count 192 K/uL (130-400); RDW Standard Deviation 50.9 fL (36.4-46.3); Red Blood Count 3.31 M/uL (4.7-6.1)
[2019-10-17 06:53] LABS: BUN Creatinine Ratio 17.9 (10-20); Calcium 8.3 mg/dl (8.5-10.1); Creatinine Clr Calc Pharmacy 165.7 ml/min; Est GFR (African American) 124.6; Est GFR (Non-African American) 107.5; Potassium 4.2 mmol/L (3.5-5.1)
[2019-10-17] MEDS: INSULIN ASPART 100 UNITS/ML 3 ML PEN SC SCH ×2 (08:50→12:33)
[2019-10-17] MEDS: PANTOprazole 40 MG TAB PO SCH (08:52)
[2019-10-17] MEDS: lisinopriL 40 MG TAB PO SCH (08:52)
[2019-10-17] MEDS: CITALOPRAM 20 MG TAB PO SCH (08:52)
[2019-10-17] MEDS: ASPIRIN 81 MG ECTAB PO SCH (08:52)
[2019-10-17] MEDS: PREGABALIN 75 MG CAP PO SCH (08:55)
--- NOTE | 2019-10-17 10:06 | Discharge Summary ---
Date of Service October 17, 2019 Admission HPI Per Admitting Provider This is a 54-year-old male with back and bilateral leg pain after failing course of nonoperative care and noting significant decline in function is here for decompression fusion. Principal Diagnosis Lumbar spinal stenosis with neurogenic claudication Discharge Data Allergies Allergy/AdvReac Type Severity Reaction Status Date / Time ketorolac [From Toradol] Allergy Unknown Rash Verified 10/14/19 11:35 Consultations 10/14/19 17:23 Consult Case Management - Discharge Planning Routine Consult Hospitalist Routine Procedures Performed Operation Date: 10/14/19 13:05 Actual Procedures p L4-L5, L5-S1 Decompression and Fusion, Application of Bone Morphogenetic Protein, Interbody Insertion L5-S1, Application of Osteoamp Allograft, Spinal Cord Monitoring(Not Applicable) - Brandon Schroeder DO Ordered Studies 10/14/19 13:05 FL fluoroscopy <1hr Routine FL lumbar spine 2-3V Routine Hospital Course (1) Neurogenic claudication due to lumbar spinal stenosis: Patient underwent lumbar decompression fusion tolerated as well as taken to the orthopedic floor possibly. Postop day 1 he was up and ambulating progressed to postop day #2 on postop day 3 RAMONITA drain decreasing probably. Excellent strength testing. Pain management improved. Subsequently discharged home. Discharge orders instructions from the chart for further review. Total Time Total Time Spent Total Time Spent (In Minutes): 20 minutes Discharge Plan Discharge Items Patient Disposition: Home - Self-Care Reason For Visit: LUMBAR SPINAL STENOSIS WO NEUROGENIC CLAUDICATION Discharge Diagnosis: Lumbar spinal stenosis with spondylolisthesis and radiculopathy Activity: As commented below Non-emergency contact: Primary Care Provider Call non-emergency contact if: you have any medication questions Follow-up/Referrals: Arturo Tello, LORENE [Primary Care Provider] - Diet: Regular Addtl Attending Provider Instructions: ACTIVITY RECOMMENDATIONS: SELF CARE INSTRUCTIONS AFTER THORACIC/LUMBAR FUSIONS 1. You may walk to your tolerance. It is good exercise for your legs and back. Expect some back and intermittent leg aches and pains. 2. You may perform "counter-top" level activities (make a sandwich, red with a project, etc.). 3. No bending or lifting of more than 10 pounds or back twisting of any nature (roll like a log when turning in bed). 4. You may ride in a car for 20-30 minutes at a time. No driving until after your first visit with your doctor. 5. Frequent changes of position and restricting sitting to 30 minutes at a time will help limit the amount of back spasms and stiffness you may experience. 6. You may discontinue the use of ambulatory aids (cane, crutches, etc.) once your strength and confidence allow. 7. You may quality engineer the shower and let water strike your incision when you arrive home at least once daily. Do not take a tub bath, sit in a hot tub or go into a swimming pool until after your first recheck in the office. SPECIAL CARE INSTRUCTIONS: VERY IMPORTANT TO READ AND REVIEW A. Your surgical incision has been closed with a cosmetic suture under the skin that will dissolve in about 6 weeks. In 14 days, you can use a pair of clean scissors and cut the suture that is left outside of the skin at the ends of your incision. 1. The small skin tapes can be removed 7 days after surgery if they have not fallen off by that point. 2. You may keep the wound open to air as much as possible to promote healing after post-op day number 5 unless told otherwise by your doctor. 3. If you think the wound looks like it is becoming infected (redness or worsening drainage) and/or you are experiencing fever, chill or worsening back pain and muscle spasms, contact the office so that we may evaluate you as soon as possible. B. Complications are uncommon, but please contact us if you have any signs or symptoms of: 1. wound infection (fever higher than 102.5 degrees F, redness, separation of wound, drainage, or increasing pain from the incision) 2. blood clots in legs (pain, swelling, redness and warmth in legs) 3. urinary tract infection (fever higher than 102.5 degrees F, burning upon urination or increased frequency of urination) 4. nerve problems (inability to walk on your toes or heels, numbness, loss of bowel or bladder control) 5. any other symptoms that concern you C. Please call the office at if you have any concerns or questions about your operation or recovery. D. No smoking! Smoking drastically decreases the chance of a solid fusion. E. Do not take any anti-inflammatory medications (Indocin, Advil, Motrin, Aspirin, Naprosyn, etc.) as these may inhibit the chance of a solid fusion. Tylenol is okay to take for pain. MANAGING PAIN AFTER SPINAL SURGERY 1. Narcotic medication is intended for short-term use and will be provided for surgical pain. Surgical pain usually lasts for a period of 4-6 weeks. Narcotic medication includes Percocet, Vicodin, Darvocet, Tylenol #3 or Lortab. 2. Longer-term pain is more appropriately treated with non-narcotic medication such as Tylenol ES. 3. Muscle spasm is not appropriately treated with narcotics. Muscle relaxers such as Soma, Flexeril or Skelaxin can be used along with Tylenol ES. 4. Remember that we all live with some "aches and pains". This is not unusual or uncommon after an injury or as we get older. a. Back pain is expected and may include muscle spasms for 4 to 6 weeks after surgery. The pain should gradually improve. If the pain worsens for no apparent reason, please contact the office. b. Intermittent leg pain may also be experienced and should not be concerned about unless it worsens for no apparent reason. If so, please contact the office. 5. We will provide appropriate medication within the normal guidelines of their prescribed use. We will also be very cautious and aware of potential abuse and extended duration of patients' medication needs. a. Pain medications are for your comfort and to assist with sleep and rest so that the tissue can heal. They are not provided in order to return to normal activity and should not be used through the day. To do so or worsening pain at night can result from ongoing tissue damage and development of tolerance to the prescribed medicine. 6. Please allow 2-3 days to process refills. Prescriptions will not be mailed but must be picked up at the office. FOLLOW UP VISIT: Keep your scheduled follow-up appointment. Any questions, please call the office at . Pending Studies at Discharge: No Stand-Alone Forms: My [employer], Smoking Cessation Medications and DC Order Prescriptions: New oxycodone 5 mg tablet 10 mg PO Q6H PRN (Reason: pain, severe) Qty: 30 RF: 0 Continued omeprazole 40 mg Capsule,Delayed Release(Dr/Ec) 40 mg PO QAM RF: 0 aspirin [Aspirin Low Dose] 81 mg Tablet,Delayed Release (Dr/Ec) 81 mg PO QAM RF: 0 citalopram [Celexa] 20 mg Tablet 20 mg PO QAM RF: 0 metformin 1,000 mg Tablet 500 mg PO BID RF: 0 lisinopril 40 mg Tablet 40 mg PO QAM RF: 0 rosuvastatin [Crestor] 10 mg Tablet 10 mg PO QPM RF: 0 pregabalin [Lyrica] 75 mg Capsule 75 mg PO BID RF: 0 Discharge Orders: Discharge Order (Routine); Ordered 10/17/19 Ordered By: Brandon Schroeder Admission Data Admit Date/Time: 10/14/19 15:10 Attending Provider: Brandon Schroeder Admit Provider: Brandon Schroeder Primary Care Provider: Arturo Tello Other Providers: Jaret Cobb
[2019-10-17] MEDS: TRAMADOL HCL 50 MG TABLET PO PRN ×2 (10:31→14:35)
== END 2019-10-17 17:33 | disposition home or self-care (01) | DRG 454 ==
LOC: ASU 11:06 → 3E 15:10